=== PATIENT | female | born 1965 | race Two or more races ===

== ENCOUNTER 2016-04-16 10:20 | Day surgery (SDC) | payer OTHER ==
[~2016-04-16 10:20] MED LIST: FENTANYL 250 MCG/5 ML AMP IV PRN; LACTATED RINGERS 1,000 ML IV SCH; LIDOCAINE Viscous 2% 15 ML UDCUP PO PRN; MIDAZOLAM HCL 5 MG/5 ML VIAL IV PRN
[2016-04-16] MEDS ORDERED: IV START KIT ONE (11:16)
[2016-04-16] MEDS ORDERED: FENTANYL 100 MCG/2 ML VIAL ONE (12:32)
[2016-04-16] MEDS ORDERED: MIDAZOLAM HCL 5 MG/5 ML VIAL ONE (12:32)
[2016-04-16] MEDS ORDERED: LIDOCAINE Viscous 2% 15 ML UDCUP ONE (12:32)
--- NOTE | 2016-04-19 13:08 | SURGPATH ---
[facility] [address] [place] [id number] Patient Name: NANCY HAMMOND MR#: [id number] : 1965 Gender: F Specimen #: [id number] Collected: 04/16/2016 Received: 04/18/2016 Reported: 04/19/2016 Submitting Phys: ANATOLIY MURO Copy To Phys: [facility], ONIEL B Clinical History / Pre-Operative Diagnosis: RULE OUT ESOPHAGITIS Specimen Source / Surgical Procedure Performed: #1-ANTRAL; #2-ESOPHAGUS AT 36 CM Interpretation: 1. ANTRAL BIOPSY: - ACTIVE, CHRONIC GASTRITIS. - ORGANISMS MORPHOLOGICALLY CONSISTENT WITH HELICOBACTER IDENTIFIED. 2. ESOPHAGEAL BIOPSY AT 36 CM: - REFLUX ESOPHAGITIS. Electronically Signed Out Cristina Sifuentes M.D. Gross Description: #1 The specimen is received in a formalin filled container labeled with the patient's name and "antral". Two marquez biopsies are 0.4 and 0.5 cm. Totally embedded in cassette #1. #2 The specimen is received in a formalin filled container labeled with the patient's name and "esophagus at 36 cm". Three govea biopsies are each 0.3 cm. Totally embedded in cassette #2. [place] Microscopic Description: 1. Sections of the antral biopsy show gastric mucosa with increased chronic and focal acute inflammation of the lamina propria. There is no evidence of intestinal metaplasia or mucosal atrophy. Organisms morphologically consistent with Helicobacter are identified in the overlying mucus layer. 2. Sections of the esophageal biopsy at 36 cm show squamous mucosa with prominence of the basal cell layer and focal elongation of the papillae. Small numbers of intraepithelial eosinophils are identified. There is no evidence of intestinal metaplasia, dysplasia or malignancy. 1: 02297 2: 86594 K29.00 B96.81 K21.0
--- NOTE | 2016-04-20 07:35 | PROCNOTE ---
Laura Penny : 1965 [id number] DATE: 04/20/2016 This 50-year-old female patient within the practice of Dr. Christy De Souza underwent upper endoscopy on April 16 for heartburn, nausea, and dysphagia. Reflux esophagitis and gastritis were seen. Antral biopsies confirmed the presence of H-pylori within the stomach. Biaxin and metronidazole both 500 mg twice daily for 10 days have been added to prescriptions of omeprazole and sucralfate. Medical follow up will be by Dr. Christy De Souza. JOB: [id number] CC: Dr. Christy De Souza
== END 2016-04-16 14:00 | disposition home or self-care (01) ==
LOC: SDC 10:20
PROVIDERS: ATTEND Internal Medicine Gastroenterology
PROC: 0DB48ZX Excision of Esophagogastric Junction, Via Natural or Artificial Opening Endoscopic, Diagnostic (ICD-10-PCS; principal; 2016-04-16)
PROC: 0DB68ZX Excision of Stomach, Via Natural or Artificial Opening Endoscopic, Diagnostic (ICD-10-PCS; 2016-04-16)
DX: K21.0 Gastro-esophageal reflux disease with esophagitis (principal); K29.50 Unspecified chronic gastritis without bleeding; B96.81 Helicobacter pylori [H. pylori] as the cause of diseases classified elsewhere; K29.80 Duodenitis without bleeding; Z72.0 Tobacco use
CPT/HCPCS: 43239; J3010; J2250; A9270; J7120